=== PATIENT | male | born 1995 | race Caucasian/White ===

== ENCOUNTER 2018-02-22 16:04 | Emergency (ER) | payer BC, OTHER ==
[~2018-02-22] VITALS: Ht 190.5 cm; Wt 73.1 kg
[~2018-02-22 16:04] MED LIST: advair inhaler INH
[2018-02-22 16:34] VITALS: TEMP 37.2; Ht 190.5 cm; Wt 73.1 kg
--- NOTE | 2018-02-22 17:01 | EMERGENCY ROOM VISIT NOTE ---
History First contact with patient: 16:43 Chief Complaint: RESPIRATORY PROBLEMS Stated Complaint: TROUBLE BREATHING, COUGHING,LIGHT HEADED History of Present Illness The patient is a 22 year old male who presents to the Emergency Room with complaints of shortness of breath and coughing that has been going on since November. The patient also in the last few weeks has started to feel lightheaded, mainly after a coughing fit. The patient thinks it might be something being admitted from his vehicle as he feels worse on his drive to work. He denies any fever or chills. No chest pain. No recent travel. He denies any history of pulmonary disease. He does not smoke. Review of Systems 10 system review performed and negative unless noted in HPI or below Past Medical/Surgical History Medical Problems: (1) Asthma Family History Diabetes mellitus FH: cancer FHx: heart disease Kidney disease Kidney stones Social History Smoking Status: Never Smoker Alcohol Use: none Drug Use: none Marital Status: single Housing Status: lives with family Occupation Status: student Current/Historical Medications Scheduled PRN Ibuprofen (Motrin), 600 MG PO Q6H PRN for Pain Physical Exam Vital Signs Date Time Temp Pulse Resp B/P (MAP) Pulse Ox O2 Delivery O2 Flow Rate FiO2 02/22/18 19:39 68 120/73 97 02/22/18 18:17 59 16 116/67 98 Nebulizer 02/22/18 17:01 98 02/22/18 16:56 60 02/22/18 16:34 37.2 79 20 135/86 99 Room Air Physical Exam VITALS: Vitals are noted on the nurse's note and reviewed by myself. Vital signs stable. GENERAL: 22-year-old male, in no acute distress, nondiaphoretic, well-developed well-nourished. SKIN: Profuse acne noted HEAD: Normocephalic atraumatic. MOUTH: Mucous membranes moist. Tonsils are not enlarged. Pharynx without erythema or exudate. Uvula midline. Airway patent. Tongue does not deviate. NECK: Supple without nuchal rigidity. Mild lymphadenopathy noted in the posterior cervical chain bilaterally cervical spine is nontender. No JVD. HEART: Regular rate and rhythm without murmurs gallops or rubs. LUNGS: Clear to auscultation bilaterally without wheezes, rales or rhonchi. No accessory muscle use. ABDOMEN: Positive bowel sounds x 4.Soft, nontender, without organomegaly. No guarding or rebound tenderness. MUSCULOSKELETAL: No muscle atrophy, erythema, or edema strength 5/5 throughout. NEURO: Patient was alert and oriented to person place and time. Normal sensation to touch. No focal neurological deficits. Medical Decision & Procedures ER Provider Diagnostic Interpretation: Chest x-ray IMPRESSION: 1. No acute cardiopulmonary disease. Electronically signed by: Ty Anderson M.D. 02/22/2018 5:33 PM Dictated Date/Time: 02/22/2018 5:32 PM Laboratory Results 02/22/18 16:56 Red Blood Count 5.46, Mean Corpuscular Volume 83.7, Mean Corpuscular Hemoglobin 28.8, Mean Corpuscular Hemoglobin Concent 34.4, Mean Platelet Volume 9.9, Neutrophils (%) (Auto) 60.9, Lymphocytes (%) (Auto) 28.5, Monocytes (%) (Auto) 8.8, Eosinophils (%) (Auto) 1.1, Basophils (%) (Auto) 0.5, Neutrophils # (Auto) 7.72, Lymphocytes # (Auto) 3.61, Monocytes # (Auto) 1.12, Eosinophils # (Auto) 0.14, Basophils # (Auto) 0.06 02/22/18 16:56 Test 02/22/18 16:56 White Blood Count 12.68 K/uL (4.8-10.8) Red Blood Count 5.46 M/uL (4.7-6.1) Hemoglobin 15.7 g/dL (14.0-18.0) Hematocrit 45.7 % (42-52) Mean Corpuscular Volume 83.7 fL (80-100) Mean Corpuscular Hemoglobin 28.8 pg (25-34) Mean Corpuscular Hemoglobin Concent 34.4 g/dl (32-36) Platelet Count 271 K/uL (130-400) Mean Platelet Volume 9.9 fL (7.4-10.4) Neutrophils (%) (Auto) 60.9 % Lymphocytes (%) (Auto) 28.5 % Monocytes (%) (Auto) 8.8 % Eosinophils (%) (Auto) 1.1 % Basophils (%) (Auto) 0.5 % Neutrophils # (Auto) 7.72 K/uL (1.4-6.5) Lymphocytes # (Auto) 3.61 K/uL (1.2-3.4) Monocytes # (Auto) 1.12 K/uL (0.11-0.59) Eosinophils # (Auto) 0.14 K/uL (0-0.5) Basophils # (Auto) 0.06 K/uL (0-0.2) RDW Standard Deviation 38.1 fL (36.4-46.3) RDW Coefficient of Variation 12.8 % (11.5-14.5) Immature Granulocyte % (Auto) 0.2 % Immature Granulocyte # (Auto) 0.03 K/uL (0.00-0.02) Anion Gap 7.0 mmol/L (3-11) Est Creatinine Clear Calc Drug Dose 122.0 ml/min Estimated GFR () 125.7 Estimated GFR (Non- 108.4 BUN/Creatinine Ratio 14.2 (10-20) Calcium Level 9.3 mg/dl (8.5-10.1) Total Bilirubin 0.5 mg/dl (0.2-1) Aspartate Amino Transf (AST/SGOT) 34 U/L (15-37) Alanine Aminotransferase (ALT/SGPT) 26 U/L (12-78) Alkaline Phosphatase 147 U/L (45-117) Total Protein 9.2 gm/dl (6.4-8.2) Albumin 4.2 gm/dl (3.4-5.0) Globulin 5.0 gm/dl (2.5-4.0) Albumin/Globulin Ratio 0.8 (0.9-2) Chemistry Specimen Hemolysis Medications Administered Medications (Trade) Dose Ordered Sig/Cha Route Start Time Stop Time Status Last Admin Dose Admin Albuterol/ Ipratropium (Duoneb) 3 ml ONE STAT INH 02/22/18 17:50 02/22/18 17:52 DC 02/22/18 18:16 3 ML Albuterol (Ventolin Hfa Inhaler) 2 puffs NOW ONCE INH 02/22/18 19:30 02/22/18 19:31 DC 02/22/18 19:38 2 PUFFS ED Course Patient was seen and examined Vital signs including blood pressure were reviewed medications list was verified with patient Labs were obtained, and a saline lock was established Imaging was performed and reviewed The patient was given a DuoNeb treatment. Upon reevaluation, he was feeling much better. We thoroughly reviewed his workup. He voiced understanding, was comfortable being discharged home. The patient was discharged home with an albuterol MDI I reviewed discharge instructions the patient. They voiced understanding and had no further questions. Medical Decision Differential diagnosis: Bronchitis, pneumonia, asthma exacerbation, pneumothorax , pulmonary embolus, chemical exposure, This patient is a 22-year-old male presents to the emergency department complaining of shortness of breath that has been going on for the last 3 months. More recently, he has experienced dizziness particularly after a coughing fit. The cough is nonproductive on exam, he is nontoxic in appearance. There is no tachypnea or hypoxia. His lungs were clear. His workup reveals mild leukocytosis. Chest x-ray was clear. The patient had fairly good symptomatic relief with a DuoNeb treatment. It is possible that he is having a mild flare of his asthma. The patient was given an albuterol MDI. He was instructed to follow-up with his primary care physician for a recheck. He and his mother were comfortable with this plan. They agree to return with any worsening symptoms This chart was completed in part utilizing [employer] Speech Voice Recognition software. Attempts were made to minimize the grammatical errors, random word insertions, pronoun errors and incomplete sentences. Any formal questions or concerns about the content, text or information contained within the body of this dictation should be directly addressed to the provider for clarification. Medication Reconcilliation Current Medication List: was personally reviewed by me Blood Pressure Screening Patient's blood pressure: Normal blood pressure Impression Primary Impression: Dyspnea Departure Information Dispostion Home / Self-Care Condition GOOD Referrals Viola Nath (PCP) Patient Instructions My [facility] Additional Instructions You have been seen in the emergency department for difficulty breathing. A chest x-ray did not show any signs of infection. Please take the albuterol inhaler 2 puffs every 4 hours as needed for difficulty breathing. Please follow-up with your primary care physician. Call tomorrow morning for a follow-up appointment. Please do not hesitate to return to the emergency department with any new, worsening or concerning symptoms It was a pleasure participating in your care today
[2018-02-22 17:12] LABS: BASO % 0.5 %; BASO ABS # 0.06 K/uL (0-0.2); EOS % 1.1 %; EOS ABS # 0.14 K/uL (0-0.5); HEMATOCRIT 45.7 % (42-52); HEMOGLOBIN 15.7 g/dL (14.0-18.0); IG# 0.03 K/uL (0.00-0.02); LYMPH % 28.5 %; LYMPH ABS # 3.61 K/uL (1.2-3.4); MEAN CELL VOLUME 83.7 fL (80-100); MEAN CORPUSCULAR HEMOGLOBIN 28.8 pg (25-34); MEAN CORPUSCULAR HGB CONC 34.4 g/dl (32-36); MEAN PLATELET VOLUME 9.9 fL (7.4-10.4); MONO % 8.8 %; MONO ABS # 1.12 K/uL (0.11-0.59); NEUT % 60.9 %; NEUT ABS # 7.72 K/uL (1.4-6.5); PLATELET COUNT 271 K/uL (130-400); RED CELL DISTRIBUTION WIDTH CV 12.8 % (11.5-14.5); RED CELL DISTRIBUTION WIDTH SD 38.1 fL (36.4-46.3); WHITE BLOOD COUNT 12.68 K/uL (4.8-10.8)
[2018-02-22 17:31] LABS: ALBUMIN 4.2 gm/dl (3.4-5.0); CALCIUM 9.3 mg/dl (8.5-10.1); CREATININE 0.99 mg/dl (0.60-1.40); POTASSIUM 3.9 mmol/L (3.5-5.1)
--- NOTE | 2018-02-22 17:34 | DIAGNOSTIC IMAGING REPORT ---
CHEST 2 VIEWS ROUTINE CLINICAL HISTORY: 22 years-old Male presenting with SOB. TECHNIQUE: PA and lateral views of the chest were obtained. COMPARISON: 05/20/2012. FINDINGS: Cardiomediastinal silhouette normal. Lungs and pleural spaces clear. Osseous structures normal. Upper abdomen normal. IMPRESSION: 1. No acute cardiopulmonary disease. Electronically signed by: Ty Anderson M.D. 02/22/2018 5:33 PM Dictated Date/Time: 02/22/2018 5:32 PM
[2018-02-22 17:37] LABS: TOTAL PROTEIN 9.2 gm/dl (6.4-8.2)
[2018-02-22] MEDS ORDERED: IBUP-1450 PO (17:40)
[2018-02-22] MEDS ORDERED: ALBUT/IPRATROP 3MG/0.5MG NEB 3 ML VIAL INH STA (17:50)
[2018-02-22] MEDS ORDERED: ALBUTEROL HFA 8 GM INHALER INH ONE (19:30)
[2018-02-22 19:39] VITALS: BP 120/73; PULSE 68; O2SAT 97
== END 2018-02-22 19:41 | disposition home or self-care (01) ==
LOC: C.EDB 16:05 → C.EDA 19:41
DX: R06.00 Dyspnea, unspecified (principal); R05 Cough; R59.0 Localized enlarged lymph nodes; L70.9 Acne, unspecified; Z87.09 Personal history of other diseases of the respiratory system